=== PATIENT | male | born 1990 | race African-American/Black ===

== ENCOUNTER 2016-12-03 22:09 | Emergency (ER) | payer SELFPAY ==
[~2016-12-03] VITALS: Ht 180.3 cm; Wt 77.3 kg
[~2016-12-03 22:09] MED LIST: NOCURR
[2016-12-03 23:50] VITALS: BP 135/80
[2016-12-04] MEDS ORDERED: HYDROCODONE/ACETAMINOPHEN 5-325 MG TABLET PO ONE
== END 2016-12-04 00:32 | disposition home or self-care (01) ==
LOC: EMS 22:10
DX: S62.613A Displaced fracture of proximal phalanx of left middle finger, initial encounter for closed fracture (principal); F17.210 Nicotine dependence, cigarettes, uncomplicated; F12.90 Cannabis use, unspecified, uncomplicated; X58.XXXA Exposure to other specified factors, initial encounter; Y93.89 Activity, other specified; Y92.89 Other specified places as the place of occurrence of the external cause; Y99.8 Other external cause status
CPT/HCPCS: 99284; 99406